=== PATIENT | male | born 1950 | race American Indian/Alaskan Native ===

== ENCOUNTER 2016-09-04 08:22 | Emergency (ER) | payer MEDICARE ==
[2016-09-04 08:27] VITALS: O2SAT 98
--- NOTE | 2016-09-04 08:46 | C.PDOC ---
History Of Present Illness 66 y/o male presents to the ED for testicular swelling x 3 years, which he states is a little bit worse lately. He notes that he fell in the and injured his back so also has some chronic back pain. Patient reports that his PMD recently so he does not have a doctor right now. He states that [place] [facility] [place] worked up not "no one would operate" on him. Patient reports history of hypertension and diabetes. Denies any fever, urinary symptoms, penile discharge, abdominal pain, or other complaints. Time Seen by Provider: 09/04/16 08:30 Chief Complaint (Nursing): Male Genitourinary History Per: Patient History/Exam Limitations: no limitations Onset/Duration Of Symptoms: Days (3 years), Gradual, Persistent, Worse Since ( "lately") Current Symptoms Are (Timing): Still Present Alleviating Factors: None Recent travel outside of the [place]: No Past Medical History Reviewed: Historical Data, Nursing Documentation, Vital Signs Vital Signs: Last Vital Signs Temp 97.8 F 09/04/16 11:12 Pulse 82 09/04/16 11:12 Resp 20 09/04/16 11:12 BP 144/82 09/04/16 11:12 Pulse Ox 98 09/04/16 11:12 - Medical History PMH: Back Problems, Diabetes, HTN Surgical History: No Surg Hx Family History: States: No Known Family Hx - Social History Hx Tobacco Use: No Hx Alcohol Use: No Hx Substance Use: No Review Of Systems Except As Marked, All Systems Reviewed And Found Negative. Constitutional: Negative for: Fever Gastrointestinal: Negative for: Abdominal Pain Genitourinary: Positive for: Other (testicular swelling). Negative for: Dysuria , Hematuria, Penile Discharge Musculoskeletal: Positive for: Back Pain (chronic) Physical Exam - Physical Exam Appears: Non-toxic, No Acute Distress Skin: Normal Color, Warm, Dry Head: Atraumatic, Normacephalic Neck: Normal ROM Chest: Symmetrical Cardiovascular: Rhythm Regular Respiratory: Normal Breath Sounds, No Rales, No Rhonchi, No Wheezing Gastrointestinal/Abdominal: Normal Exam, Soft, No Tenderness Back: Normal Inspection, No CVA Tenderness, No Vertebral Tenderness Male Genital: Testicular Tenderness (right), Testicular Swelling (right), Other Extremity: Normal ROM Neurological/Psych: Oriented x3, Normal Speech, Normal Cognition ED Course And Treatment - Laboratory Results Result Diagrams: 09/04/16 09:09 09/04/16 09:09 Lab Interpretation: Normal O2 Sat by Pulse Oximetry: 98 (ra) Pulse Ox Interpretation: Normal - CT Scan/US Ultrasound Other Rad Studies (CT/US): Read By Radiologist, Radiology Report Reviewed CT/US Interpretation: Accession No. : [id number]. Patient Name / ID : MANNIE GUARDADO / [id number]. Exam Date : 09/04/2016 09:35:21 ( Approved ). Study Comment : Sex / Age : M / 66Y. Creator : Nichol Soriano MD. Dictator : Nichol Soriano MD. Mail Agent : Slab Tripper : Nichol Soriano MD. Approver2 : Report Date : 09/04/2016 10:15:59. My Comment : . HISTORY: swelling. TECHNIQUE: Realtime sonography through the scrotum with color and doppler flow. COMPARISON: None Available. FINDINGS: RIGHT TESTICLE: Measures 5.8 x 2.6 x 3.1 cm. Homogeneous echotexture. Blood flow is demonstrated. RIGHT EPIDIDYMIS: Appears approximately 0.9 x 0.6 x 0.8 cm. LEFT TESTICLE: Measures 4.4 x 2.2 x 3.0 cm. Homogeneous echotexture. Blood flow is demonstrated. LEFT EPIDIDYMIS: Measures approximately 1.1 x 0.9 x 0.9 cm. HYDROCELE: Moderate to large right-sided hydrocele. VARICOCELE: None. OTHER FINDINGS: None. IMPRESSION: Moderate to large right-sided hydrocele. Progress Note: Testicular Ultrasound, Blood Work, and Urinalysis were ordered. On re-evaluation abdomen soft. Patient given copy of US and labs and referred to clinic and urology Reassessment Condition: Improved Disposition Counseled Patient/Family Regarding: Studies Performed, Diagnosis, Need For Followup, Rx Given - Disposition Referrals: Curt,Vito, MD [Staff Provider] - [facility] [Outside] [facility] [Outside] Disposition: HOME/ ROUTINE Disposition Time: 11:00 Condition: IMPROVED Additional Instructions: Follow up with clinic and urology for further evaluation Prescriptions: Naproxen [Naprosyn] 1 tab PO BID PRN #25 tab PRN Reason: Pain Instructions: Hydrocele (ED), Testicle Pain (ED) Print Language: GREEK - POA Present On Arrival: None - Clinical Impression Clinical Impression: Hydrocele - PA / POLITICAL SCIENTIST / Resident Statement MD/DO has reviewed & agrees with the documentation as recorded. - Scribe Statement The provider has reviewed the documentation as recorded by the Scribe (Stefanie Ryan) All medical record entries made by the Scribe were at my direction and personally dictated by me. I have reviewed the chart and agree that the record accurately reflects my personal performance of the history, physical exam, medical decision making, and the department course for this patient. I have also personally directed, reviewed, and agree with the discharge instructions and disposition.
[2016-09-04 09:13] LABS: BASO # 0.1 K/uL (0.0-0.2); BASO % 1.1 % (0.0-2.0); EOS # 0.1 K/uL (0.0-0.7); EOS % 1.7 % (0.0-4.0); HEMATOCRIT 43.7 % (35.0-51.0); LYMPH # 2.8 K/uL (1.0-4.3); LYMPH % 45.6 % (20.0-40.0); MEAN CORPUSCULAR HEMOGLOBIN 28.7 pg (27.0-31.0); MEAN CORPUSCULAR HGB CONC 34.1 g/dL (33.0-37.0); MEAN PLATELET VOLUME 7.9 fL (7.2-11.7); MONO # 0.4 K/uL (0.0-0.8); MONO % 6.5 % (0.0-10.0); NRBC % 0.1 % (0.0-2.0); RED CELL DISTRIBUTION WIDTH 13.2 % (11.5-14.5)
[2016-09-04 09:16] LABS: RBC URINE 1 /hpf (0-3); URINE BILIRUBIN NEGATIVE (NEGATIVE); URINE BLOOD NEGATIVE (NEGATIVE); URINE COLOR Yellow (YELLOW); URINE GLUCOSE (UA) NORMAL (Normal); URINE KETONE NEGATIVE (NEGATIVE); URINE LEUKOCYTE ESTERASE NEG Leu/uL (Negative); URINE PROTEIN NEGATIVE (NEGATIVE); URINE UROBILINOGEN NORMAL mg/dL (0.2-1.0); WBC URINE 1 /hpf (0-5)
[2016-09-04 09:22] LABS: CHLORIDE 98 mmol/L (98-107); POTASSIUM 4.6 mmol/L (3.6-5.2); SODIUM 137 mmol/L (132-148)
[2016-09-04 09:24] LABS: ALB/GLOB RATIO 1.4 (1.0-2.1); ALKALINE PHOSPHATASE 63 U/L (38-126); AST/SGOT 24 U/L (17-59); BILIRUBIN,TOTAL 0.5 mg/dL (0.2-1.3); CARBON DIOXIDE 26 mmol/L (22-30); GFR AFRICAN-AMERICAN > 60; TOTAL PROTEIN 7.2 g/dL (6.3-8.3)
[2016-09-04 09:25] LABS: ALT/SGPT 30 U/L (21-72); BLOOD UREA NITROGEN 12 mg/dL (9-20); CALCIUM 8.9 mg/dl (8.6-10.4); GLUCOSE,RANDOM 192 mg/dL (75-110)
--- NOTE | 2016-09-04 10:17 | US ---
HISTORY: swelling TECHNIQUE: Realtime sonography through the scrotum with color and doppler flow. COMPARISON: None Available. FINDINGS: RIGHT TESTICLE: Measures 5.8 x 2.6 x 3.1 cm. Homogeneous echotexture. Blood flow is demonstrated. RIGHT EPIDIDYMIS: Appears approximately 0.9 x 0.6 x 0.8 cm. LEFT TESTICLE: Measures 4.4 x 2.2 x 3.0 cm. Homogeneous echotexture. Blood flow is demonstrated. LEFT EPIDIDYMIS: Measures approximately 1.1 x 0.9 x 0.9 cm. HYDROCELE: Moderate to large right-sided hydrocele. VARICOCELE: None. OTHER FINDINGS: None. IMPRESSION: Moderate to large right-sided hydrocele.
[2016-09-04 11:12] VITALS: BP 144/82; PULSE 82; RESP 20; TEMP 97.8
== END 2016-09-04 11:26 | disposition home or self-care (01) ==
LOC: C.ER 08:22
DX: N43.3 Hydrocele, unspecified (principal)

== ENCOUNTER 2017-08-15 08:29 | Day surgery (SDC) | payer MEDICARE ==
[2017-07-23 10:27] VITALS: BMI 31.4
[2017-08-15] MEDS ORDERED: ceFAZolin IV 1 gm in Dextrose 1 GM/50 ML BAG IVPB ONE (11:15)
[2017-08-15] MEDS ORDERED: Bupivacaine HCl 0.5% PF (10 ml) Inj ONE (11:15)
[2017-08-15] MEDS ORDERED: Lidocaine Hydrochloride 10 ML INJ ONE (11:15)
[2017-08-15] MEDS ORDERED: Propofol 10 mg/ml Inj (20 ML) ONE (11:18)
[2017-08-15] MEDS ORDERED: Midazolam 2 MG/2 ML VIAL ONE (11:18)
[2017-08-15] MEDS ORDERED: Bacitracin Ointment 30 GM TUBE ONE (11:56)
[2017-08-15] MEDS ORDERED: Phenylephrine 10 mg/ml Inj ONE (12:37)
[2017-08-15] MEDS ORDERED: HYDROmorphone 0.5 mg/0.5 ml ISec IVP PRN (13:16)
[2017-08-15] MEDS ORDERED: Lactated Ringer's 1,000 ML IV SCH (13:30)
[2017-08-15 14:09] VITALS: BP 130/82
[2017-08-15 14:32] VITALS: PULSE 80; RESP 18; TEMP 97; O2SAT 100
--- NOTE | 2017-08-16 00:24 | OP ---
PROCEDURE DATE: 08/15/2017 PREOPERATIVE DIAGNOSIS: Right hydrocele. POSTOPERATIVE DIAGNOSIS: Right hydrocele. PROCEDURE: Right hydrocelectomy. SURGEON: Vito Elias M.D. TYPE OF ANESTHESIA: Local anesthesia plus laryngeal mask anesthesia with DESCRIPTION OF PROCEDURE: The patient was placed on the operating room in the supine position, prepped and draped in usual sterile fashion with Betadine solution. Under laryngeal mask anesthesia, a mid right scrotal transverse skin incision was made. This was deepened down to the subcutaneous tissue and the hydrocele sac was then mobilized within the scrotal sac and longitudinal incision in the hydrocele sac revealed grey fluid return. Using a bottle neck technique, the remaining tunica vaginalis was closed over itself behind the testicle, which appeared to be relatively normal using 2-0 Vicryl interrupted sutures. A Culloden drain was brought out through the most dependent portion of the scrotal skin in the right scrotal sac. This was a 0.25-inch Natacha drain. It was sutured to the skin using 2-0 Vicryl interrupted suture and placed in the scrotal sac. Next, the subcutaneous tissue was closed using 2-0 Vicryl and 3-0 Chromic interrupted sutures. The skin was also closed using 3-0 Chromic interrupted sutures. Bacitracin ointment was applied to the scrotal wound and sterile gauze dressing and fluff dressings were placed over the scrotal wound, which was held in place using an extra large scrotal support. The patient tolerated the procedure well with about 15 mL of blood loss and was brought to the recovery area in satisfactory condition. The patient did take some aspirin prior to the procedure which was on as one of his routine medications. The patient will follow up either Saturday or Saturday to remove the Culloden drain. The patient will be discharged home on Ceftin 500 mg b.i.d. for 5 days and then Percocet 5/325 mg p.o. every 6 hours on a p.r.n. basis. The patient is advised not to take any aspirin till the Natacha drain is removed. Vito Elias MD cc: [facility] # [id number]
== END 2017-08-15 14:55 | disposition home or self-care (01) ==
LOC: C.SDS 08:29
PROVIDERS: ATTEND Urology
DX: N43.3 Hydrocele, unspecified (principal)
CPT/HCPCS: 55500; 82948; J0690; J2250; J2370; J2704; J3010

== ENCOUNTER 2017-08-16 19:46 | Observation (INO) | payer MEDICARE ==
[2017-08-16 20:03] VITALS: BMI 27.8
[2017-08-16 21:09] LABS: BASO % 0.2 % (0.0-2.0); EOS % 0.5 % (0.0-4.0); HEMOGLOBIN 13.6 g/dL (12.0-18.0); LYMPH # 1.2 K/uL (1.0-4.3); LYMPH % 13.3 % (20.0-40.0); MEAN CELL VOLUME 86.1 fL (80.0-94.0); MEAN CORPUSCULAR HEMOGLOBIN 29.5 pg (27.0-31.0); MEAN CORPUSCULAR HGB CONC 34.3 g/dL (33.0-37.0); MEAN PLATELET VOLUME 8.2 fL (7.2-11.7); MONO # 0.6 K/uL (0.0-0.8); NEUT # 7.3 K/uL (1.8-7.0); NRBC % 0.1 % (0.0-2.0); RBC 4.62 Mil/uL (4.40-5.90); RED CELL DISTRIBUTION WIDTH 13.5 % (11.5-14.5); WHITE BLOOD COUNT 9.3 K/uL (4.8-10.8)
[2017-08-16 21:17] LABS: PROTHROMBIN TIME 11.3 SECONDS (9.7-12.2)
--- NOTE | 2017-08-16 21:18 | C.PDOC ---
History Of Present Illness 67 year old male, who is s/p hydrocele repair yesterday, presents to the ED with complaint of lightheadedness and dizziness which began at around 1600 today. Patient is also complaining of right testicular pain. Patient is a poor historian and cannot characterize further history. Time Seen by Provider: 08/16/17 20:48 Chief Complaint (Nursing): Dizziness/Lightheaded History Per: Patient History/Exam Limitations: no limitations Onset/Duration Of Symptoms: Hrs Current Symptoms Are (Timing): Still Present Associated Symptoms Preceding Syncopal Episode: No Predromal Symptoms (Sudden Onset) Additional History Per: Patient Past Medical History Reviewed: Historical Data, Nursing Documentation, Vital Signs Vital Signs: Last Vital Signs Temp 98.0 F 08/18/17 07:20 Pulse 90 08/18/17 07:45 Resp 18 08/18/17 07:20 BP 145/74 08/18/17 07:20 Pulse Ox 96 08/19/17 11:41 - Medical History PMH: Back Problems, Diabetes, HTN Denies: Chronic Kidney Disease Surgical History: No Surg Hx Family History: States: Unknown Family Hx - Social History Hx Tobacco Use: No Hx Alcohol Use: No Hx Substance Use: No - Immunization History Hx Tetanus Toxoid Vaccination: No Hx Influenza Vaccination: No Hx Pneumococcal Vaccination: No Review Of Systems Neurological: Positive for: Dizziness, Other (lightheadedness) Physical Exam - Physical Exam Appears: Non-toxic, No Acute Distress Skin: Normal Color, Warm, Dry, Other (milton drain sutured to skin ) Head: Atraumatic, Normacephalic Oral Mucosa: Moist Neck: Supple Chest: Symmetrical, No Deformity, No Tenderness Cardiovascular: Rhythm Regular, No Murmur Respiratory: Normal Breath Sounds, No Rales, No Rhonchi, No Wheezing Gastrointestinal/Abdominal: Soft, No Tenderness, No Guarding, No Rebound Male Genital: Testicular Tenderness (right), Other (enlarged right testicle ) Extremity: Normal ROM, Capillary Refill (less than 2 seconds ) Neurological/Psych: Oriented x3, Normal Speech, Normal Cognition ED Course And Treatment - Laboratory Results Result Diagrams: 08/16/17 21:02 08/16/17 21:02 ECG: Interpreted By Me, Viewed By Me ECG Rhythm: Sinus Tachycardia Interpretation Of ECG: Sinus Tachycardia at rate 102bpm. No ST/T wave changes. Rate From EC O2 Sat by Pulse Oximetry: 96 Medical Decision Making Medical Decision Making: Progress: Bloodwork, CXR, EKG, Testicular US ordered and reviewed. Disposition - Disposition Disposition: HOSPITALIZED Disposition Time: 11:00 Condition: STABLE - Clinical Impression Clinical Impression: Dizziness, Near syncope, Post-op pain - Scribe Statement The provider has reviewed the documentation as recorded by the Scribe (Gisela Koehler) Provider Attestation: All medical record entries made by the Scribe were at my direction and personally dictated by me. I have reviewed the chart and agree that the record accurately reflects my personal performance of the history, physical exam, medical decision making, and the department course for this patient. I have also personally directed, reviewed, and agree with the discharge instructions and disposition. Decision To Admit - Pt Status Changed To: Hospital Disposition Of: Observation - . Bed Request Type: Telemetry Admitting Physician: Martha Palma Patient Diagnosis: Dizziness, Near syncope, Post-op pain
[2017-08-16 21:20] LABS: ALB/GLOB RATIO 1.1 (1.0-2.1); ALT/SGPT 37 U/L (21-72); AST/SGOT 27 U/L (17-59); BLOOD UREA NITROGEN 11 mg/dL (9-20); CALCIUM 8.8 mg/dl (8.6-10.4); GFR AFRICAN-AMERICAN > 60; GFR NON-AFRICAN AMERICAN > 60
[2017-08-16] MEDS ORDERED: Oxycodone/Acetaminophen 5/325 mg Tab PO PRN (22:31)
[2017-08-16] MEDS: Dextrose 5%/0.9% NS 1,000 ML IV SCH (22:40)
[2017-08-16] MEDS ORDERED: Dextrose 5%/0.9% NS 1,000 ML IV ONE (22:46)
--- NOTE | 2017-08-16 23:22 | US ---
EXAM: US Scrotum EXAM DATE/TIME: 08/16/2017 8:58 PM CLINICAL HISTORY: 67 years old, male; Pain; Scrotum pain; Prior surgery; Surgery date: Post-operative (0-2 days); Surgery type: Scrotum surgery; Patient HX: See cine please; Additional info: Right testicular pain S/P surgery TECHNIQUE: Real-time ultrasound of the scrotum with color Doppler and image documentation. COMPARISON: No relevant prior studies available. FINDINGS: The right testicle measures 4 x 3 x 3 cm and the left testicle measures 4 x 3 x 3 cm. The testicles are homogeneous bilaterally. Vascular waveforms are demonstrated to the testicle bilaterally (no torsion). The flow appears symmetric on side by side images. The right epididymis measures 1.5 x 1 x 1.6 cm. The left epididymis measures 2.2 x 0.9 x 1.5 cm. The visualized epidiymis are normal bilaterally although there is slightly suboptimal visualization of the right epididymal head. There are bilateral hydroceles greater on the right. There is a septation coursing through the left hydrocele. There is bilateral scrotal wall thickening greater on the right (1.2 cm on the right and 0.5 cm on the left). IMPRESSION: Bilateral scrotal wall thickening and bilateral hydroceles, both greater on the right. These findings could be postoperative given a history of recent surgery. Superimposed developing infectious/inflammatory process would be possible, however there is no asymmetry in the testicular size or testicular vascularity to suggest orchitis at this time.
--- NOTE | 2017-08-16 23:38 | CT ---
EXAM: CT Head Without Intravenous Contrast EXAM DATE/TIME: 08/16/2017 10:19 PM CLINICAL HISTORY: 67 years old, male; Signs and symptoms; Dizziness TECHNIQUE: Axial computed tomography images of the head/brain without intravenous contrast. All CT scans at this facility use one or more dose reduction techniques, viz.: automated exposure control; ma/kV adjustment per patient size (including targeted exams where dose is matched to indication; i.e. head); or iterative reconstruction technique. COMPARISON: No relevant prior studies available. FINDINGS: There is atrophy. There is chronic small vessel ischemic disease. There is no hemorrhage or edema. No significant fluid in the sinuses. The osseous structures are normal. IMPRESSION: No acute findings.
--- NOTE | 2017-08-17 08:54 | RAD ---
PROCEDURE: CHEST RADIOGRAPH, 1 VIEW HISTORY: Chest pain COMPARISON: None available. FINDINGS: LUNGS: The lungs are well inflated and clear. PLEURA: No pneumothorax or pleural fluid seen. CARDIOVASCULAR: Normal. OSSEOUS STRUCTURES: No significant abnormalities. VISUALIZED UPPER ABDOMEN: Normal. OTHER FINDINGS: None. IMPRESSION: No active pulmonary disease.
[2017-08-17] MEDS: Dextrose 5%/0.9% NS 1,000 ML IV SCH (11:00)
[2017-08-18] MEDS: Dextrose 5%/0.9% NS 1,000 ML IV SCH ×2 (00:05→12:34)
--- NOTE | 2017-08-18 00:25 | CON ---
DATE: 08/17/2017 TIME OF CONSULTATION: 1:40 p.m. BRIEF HISTORY: The patient is a 67-year-old male, status post a right hydrocelectomy done at [facility] on 08/15/2017 who presents to [facility] emergency room postop with a complaint of dizziness. Upon examination in the emergency room, the ER physician noted that the Natacha drain was pulled out and just attached to the skin. There was minimal bleeding from the scrotal wound and [id number] serosanguineous fluid on the scrotal dressing. The patient was admitted for workup of dizziness. PHYSICAL EXAMINATION VITAL SIGNS: On admission showed his temperature today is 98, his blood pressure is 146/84, and his respiratory rate was 20, O2 saturation on room air was 98%. His scrotal wound examination showed the scrotal wound to be intact. No dressing on the wound and just the scrotal support holding the scrotum elevated. There was minimal serosanguineous drainage on the scrotal support at this hour. The Haynes drain was removed from the skin and a sterile gauze dressing was applied to the scrotal wound and a new scrotal support placed to hold the scrotal dressing and maintain the scrotum elevated. There was minimal swelling of the right scrotum. The patient was relatively comfortable and not requiring any pain medication at this time. LABORATORY DATA: His laboratory evaluation on 06/18/2017 showed CBC with a WBC count of 9.3, hemoglobin of 13.6, hematocrit 39.8, with a platelet count of 248,000. PT and PTT showed a PT of 11.3, INR of 1.0, and PTT of 30. His chem profile showed a sodium of 139, potassium 4.0, chloride 99, CO2 of 25, BUN and creatinine of 11 and 0.9 respectively with GFR greater than 60. Random glucose was 169. AST was 27, ALT was 37. Alk phos was 59. Troponin level was less than 0.0120. IMPRESSION: This patient is status post right hydrocelectomy, but comlained of dizziness post op, Patient admitted for work up of dizziness. Plan for this patient is just to manage the patient medically at this time. The patient to see me in office followup in about 2 weeks. Vito Elias MD [facility] # [id number] BRAD
[2017-08-18 07:52] VITALS: BP 145/74; RESP 18; TEMP 98
[2017-08-18 08:45] VITALS: PULSE 90
[2017-08-19 11:41] VITALS: O2SAT 96
--- NOTE | 2017-08-19 14:13 | HP ---
HISTORY OF PRESENT ILLNESS: This is a 67-year-old male with chief complaint of near syncope and dizziness. The patient had surgery by Urologist and the patient feel weak and tired. PHYSICAL EXAMINATION: GENERAL: The patient is awake, alert, and oriented x3. VITAL SIGNS: Temperature 98, pulse 90. HEENT: Within normal limits. NECK: Supple. HEART: Regular. CHEST: Symmetrical. ABDOMEN: Soft. EXTREMITIES: No edema. IMPRESSION: Status post ____ dizziness. Patient in bed rest, neuro check, urology evaluation. Martha Palma MD
--- NOTE | 2017-08-20 06:45 | DS ---
HISTORY OF PRESENT ILLNESS: This is a 67-year-old male admitted to the hospital with chief complaint of dizziness and weakness. The patient underwent surgery. Patient has dizziness and weakness, patient came to the hospital, advised admission. The patient to get bedrest, supportive care, continue treatment. The patient improved, Discharged, follow up with Dr. Elias. Martha Palma MD
--- NOTE | 2017-08-20 12:53 | CARD ---
APPROVED REPORT EKG Measurement Heart [id number] <Conclusion> Sinus tachycardia with premature atrial complexes Possible Left atrial enlargement Borderline ECG
== END 2017-08-18 13:56 | disposition home or self-care (01) ==
LOC: C.ER 19:46 → C.5S 23:38
PROVIDERS: ADMIT Internal Medicine Pulmonary Disease; ATTEND Internal Medicine Pulmonary Disease
DX: R42 Dizziness and giddiness (principal); R53.1 Weakness; I10 Essential (primary) hypertension; E11.9 Type 2 diabetes mellitus without complications; G89.18 Other acute postprocedural pain; R55 Syncope and collapse
CPT/HCPCS: 70450; 71045; 76870; 80053; 82948; 84484; 85025; 85610; 85730; 99285; G0378; J7042

== ENCOUNTER 2017-10-09 00:10 | Emergency (ER) | payer MEDICARE ==
[2017-10-09 00:10] VITALS: BMI 27.8
[2017-10-09 00:22] VITALS: RESP 18
--- NOTE | 2017-10-09 00:35 | C.PDOC ---
History Of Present Illness 67 year old male presents to the ED c/o difficulty urinating. Patient reports he usually does not urinate much but today he noticed he was not able to urinate at all. Patient denies fever, chills, nausea, vomit, diarrhea, back pain. Chief Complaint (Nursing): Male Genitourinary History Per: Patient History/Exam Limitations: no limitations Onset/Duration Of Symptoms: Days Current Symptoms Are (Timing): Still Present Quality Of Discomfort: "Pain" Associated Symptoms: Urinary Symptoms Recent travel outside of the [place]: No Additional History Per: Patient Past Medical History Reviewed: Historical Data, Nursing Documentation, Vital Signs Vital Signs: Last Vital Signs Temp 98.1 F 10/09/17 00:18 Pulse 110 H 10/09/17 00:18 Resp 18 10/09/17 00:18 BP 147/83 10/09/17 00:18 Pulse Ox 98 10/09/17 01:14 - Medical History PMH: Back Problems, Diabetes, HTN Denies: Chronic Kidney Disease Surgical History: No Surg Hx Family History: States: Unknown Family Hx - Social History Hx Tobacco Use: No Hx Alcohol Use: No Hx Substance Use: No - Immunization History Hx Tetanus Toxoid Vaccination: No Hx Influenza Vaccination: No Hx Pneumococcal Vaccination: No Review Of Systems Constitutional: Negative for: Fever, Chills Cardiovascular: Negative for: Chest Pain Respiratory: Negative for: Shortness of Breath Gastrointestinal: Negative for: Abdominal Pain Skin: Negative for: Rash Neurological: Negative for: Weakness, Numbness Physical Exam - Physical Exam Appears: Non-toxic, No Acute Distress Skin: Normal Color, Warm, Dry Head: Atraumatic, Normacephalic Eye(s): bilateral: Normal Inspection Nose: No Discharge Oral Mucosa: Moist Neck: Normal ROM, Supple Chest: Symmetrical Cardiovascular: Rhythm Regular, No Murmur Respiratory: Normal Breath Sounds, No Rales, No Rhonchi, No Wheezing Gastrointestinal/Abdominal: No Soft (firm ), No Tenderness, Distention, No Guarding, No Rebound Back: No CVA Tenderness Extremity: Normal ROM, No Tenderness, No Swelling Neurological/Psych: Oriented x3, Normal Speech, Normal Cognition Gait: Steady ED Course And Treatment O2 Sat by Pulse Oximetry: 98 (ON RA) Pulse Ox Interpretation: Normal Medical Decision Making Medical Decision Making: Impression: trouble urinating Plan: * Flomax 0.4 mg PO * Urine culture * Dukes * UA Disposition Counseled Patient/Family Regarding: Diagnosis - Disposition Referrals: Martha Palma MD [Primary Care Provider] - Disposition: HOME/ ROUTINE Disposition Time: 04:00 Condition: STABLE Prescriptions: Ciprofloxacin [Cipro] 1 tab PO BID #14 tab Tamsulosin HCl [Flomax] 0.4 mg PO DAILY #10 cap.er.24h Instructions: Urinary Retention (DC), Dukes Catheter, Male, How to Care for Your Dukes Catheter, Male Forms: [employer] (Japanese) - POA Present On Arrival: None - Clinical Impression Clinical Impression: Urinary retention - Scribe Statement The provider has reviewed the documentation as recorded by the Scribe Reece Gonzales All medical record entries made by the Scribe were at my direction and personally dictated by me. I have reviewed the chart and agree that the record accurately reflects my personal performance of the history, physical exam, medical decision making, and the department course for this patient. I have also personally directed, reviewed, and agree with the discharge instructions and disposition.
[2017-10-09] MEDS ORDERED: Lidocaine 2% Jelly (Uro-Jet) ONE (01:04)
[2017-10-09] MEDS ORDERED: Morphine 4 MG/ML VIAL ONE (01:53)
[2017-10-09 03:45] LABS: SQUAMOUS EPITHIAL < 1 /hpf (0-5); URINE BACTERIA RARE (<OCC); URINE BILIRUBIN NEGATIVE (NEGATIVE); URINE BLOOD 2+ (NEGATIVE); URINE CLARITY Clear (Clear); URINE COLOR Yellow (YELLOW); URINE GLUCOSE (UA) 1+ mg/dL (Normal); URINE LEUKOCYTE ESTERASE NEG Leu/uL (Negative); URINE PROTEIN NEGATIVE (NEGATIVE); URINE UROBILINOGEN NORMAL mg/dL (0.2-1.0)
[2017-10-09 04:44] VITALS: BP 140/80; PULSE 89; TEMP 98; O2SAT 100
== END 2017-10-09 04:45 | disposition home or self-care (01) ==
LOC: C.ER 00:10 → SUPCPDRO 00:10 → C.ER 04:45
DX: R33.9 Retention of urine, unspecified (principal); I10 Essential (primary) hypertension; E11.9 Type 2 diabetes mellitus without complications
CPT/HCPCS: 81001; 82948; 87086; 96374; 99285; J2270

== ENCOUNTER 2017-10-11 09:34 | Emergency (ER) | payer MEDICARE ==
[2017-10-11 09:35] VITALS: BMI 27.8
[2017-10-11 09:41] VITALS: BP 156/91; PULSE 92; RESP 16; TEMP 97.9; O2SAT 100
[2017-10-11 10:35] LABS: SQUAMOUS EPITHIAL 1 /hpf (0-5); URINE BACTERIA RARE (<OCC); URINE BILIRUBIN NEGATIVE (NEGATIVE); URINE BLOOD 3+ (NEGATIVE); URINE CLARITY Hazy (Clear); URINE COLOR Yellow (YELLOW); URINE GLUCOSE (UA) 3+ mg/dL (Normal); URINE HYALINE CAST 0-2 /lpf (0-2); URINE LEUKOCYTE ESTERASE 1+ Leu/uL (Negative); URINE PROTEIN 2+ mg/dL (NEGATIVE)
--- NOTE | 2017-10-11 10:48 | C.PDOC ---
History Of Present Illness 67 year old male presents to the ED requesting to have his Jasmine removed. Patient was seen in the ED on Saturday night for urinary retention had a jasmine placed and was given flomax and cipro. Patient goes to Urologist Dr. Elias , as per patient he was instructed by ED doctor to come to the ED to have his jasmine removed. Patient denies any complaints at this time. Chief Complaint (Nursing): Male Genitourinary History Per: Patient History/Exam Limitations: no limitations Onset/Duration Of Symptoms: Days Current Symptoms Are (Timing): Still Present Quality Of Discomfort: "Pain" Associated Symptoms: Urinary Symptoms Alleviating Factors: None Recent travel outside of the [place]: No Additional History Per: Patient Past Medical History Reviewed: Historical Data, Nursing Documentation, Vital Signs Vital Signs: Last Vital Signs Temp 97.9 F 10/11/17 09:37 Pulse 92 H 10/11/17 09:37 Resp 16 10/11/17 09:37 BP 156/91 H 10/11/17 09:37 Pulse Ox 100 10/11/17 12:52 - Medical History PMH: Back Problems, Diabetes, HTN Denies: Chronic Kidney Disease Surgical History: No Surg Hx Family History: States: Unknown Family Hx - Social History Hx Tobacco Use: No Hx Alcohol Use: No Hx Substance Use: No - Immunization History Hx Tetanus Toxoid Vaccination: No Hx Influenza Vaccination: No Hx Pneumococcal Vaccination: No Review Of Systems Constitutional: Negative for: Fever, Chills Cardiovascular: Negative for: Chest Pain Respiratory: Negative for: Shortness of Breath Gastrointestinal: Negative for: Vomiting, Abdominal Pain Genitourinary: Positive for: Other (Jasmine placed) Skin: Negative for: Rash Neurological: Negative for: Weakness, Numbness Physical Exam - Physical Exam Appears: Non-toxic, No Acute Distress Skin: Normal Color, Warm, Dry Head: Atraumatic, Normacephalic Eye(s): bilateral: Normal Inspection Nose: No Discharge Oral Mucosa: Moist Neck: Normal ROM, Supple Chest: Symmetrical Cardiovascular: Rhythm Regular, No Murmur Respiratory: Normal Breath Sounds, No Rales, No Rhonchi, No Wheezing Gastrointestinal/Abdominal: Soft, No Tenderness, No Guarding, No Rebound Male Genital: Other (Jasmine in place, no leakage. Urine seen is dark yellow) Extremity: Normal ROM, No Tenderness, No Swelling Neurological/Psych: Oriented x3, Normal Speech Gait: Steady ED Course And Treatment O2 Sat by Pulse Oximetry: 100 (ON RA) Pulse Ox Interpretation: Normal Progress Note: Plan: - UA. - Urine culture. Patient was explained that he needs to follow up with his urologist and have his jasmine removed at his office to make sure there is no retention. Patient was D/C and was told follow up with his Urologist. Disposition - Disposition Referrals: Vito Elias MD [Staff Provider] - Disposition: HOME/ ROUTINE Disposition Time: 10:47 Condition: STABLE Additional Instructions: Follow up with your Urologist within 1-2 days. Return to ED if feel worse. Instructions: How to Care for Your Jasmine Catheter, Male, Jasmine Catheter, Male Forms: [employer] ([place] Citizen) - Clinical Impression Clinical Impression: Jasmine catheter in place - PA / CONCHE OPERATOR / Resident Statement MD/DO has reviewed & agrees with the documentation as recorded. - Scribe Statement The provider has reviewed the documentation as recorded by the Scribe Reece Gonzales All medical record entries made by the Scribe were at my direction and personally dictated by me. I have reviewed the chart and agree that the record accurately reflects my personal performance of the history, physical exam, medical decision making, and the department course for this patient. I have also personally directed, reviewed, and agree with the discharge instructions and disposition.
== END 2017-10-11 11:06 | disposition home or self-care (01) ==
LOC: C.ER 09:34
DX: Z46.6 Encounter for fitting and adjustment of urinary device (principal); I10 Essential (primary) hypertension; E11.9 Type 2 diabetes mellitus without complications

== ENCOUNTER 2017-10-13 13:13 | Emergency (ER) | payer MEDICARE ==
[2017-10-13 13:14] VITALS: BMI 27.8
[2017-10-13] MEDS ORDERED: Morphine 4 MG/ML VIAL IV ONE (13:32)
--- NOTE | 2017-10-13 13:33 | C.PDOC ---
History Of Present Illness 67 y/o male with pmhx significant for BPH. Patient had a jasmine catheter placed 5 days ago after presenting for urinary retention, two days ago he returned and asked for it to be removed as it was uncomfortable. Apparently his wishes were not followed and he was discharged. Since last night he has had new development of right sided inguinal swelling without vomiting, fever, or dysuria. Chief Complaint (Nursing): Male Genitourinary History Per: Patient History/Exam Limitations: no limitations Onset/Duration Of Symptoms: Days (1) Current Symptoms Are (Timing): Still Present Severity: Moderate Quality Of Discomfort: "Pain" Associated Symptoms: denies: Fever, Vomiting, Urinary Symptoms Recent travel outside of the [place]: No Additional History Per: Patient Past Medical History Vital Signs: Last Vital Signs Temp 97.9 F 10/13/17 16:30 Pulse 96 H 10/13/17 16:30 Resp 17 10/13/17 16:30 BP 143/81 10/13/17 16:30 Pulse Ox 98 10/13/17 16:30 - Medical History PMH: Back Problems, Benign Prostatic Hyperplasia, Diabetes, HTN Denies: Chronic Kidney Disease Other Surgeries: operation of unknown significance to evacuate a testicular lesion in July 2017. Family History: States: Unknown Family Hx - Social History Hx Tobacco Use: No Hx Alcohol Use: No Hx Substance Use: No - Immunization History Hx Tetanus Toxoid Vaccination: No Hx Influenza Vaccination: No Hx Pneumococcal Vaccination: No Review Of Systems Except As Marked, All Systems Reviewed And Found Negative. Gastrointestinal: Positive for: Other (inguinal swelling) Physical Exam - Physical Exam Appears: Well, No Acute Distress Skin: Normal Color, Warm, Dry Eye(s): bilateral: Normal Inspection, PERRL, EOMI Nose: Normal Throat: Normal Neck: Normal Cardiovascular: Rhythm Regular Respiratory: Normal Breath Sounds Gastrointestinal/Abdominal: No Normal Exam, Bowel Sounds (normal), Soft, Hernia (incarcerated right inguinal hernia, abdomen is otherwise normal.) Back: Normal Inspection Male Genital: No Testicular Swelling, Inguinal Tenderness, Inguinal Swelling ( right sided), No Scrotal Swelling, Other (jasmine catheter in place) Extremity: Normal ROM Pulses: Left Dorsalis Pedis: Normal, Right Dorsalis Pedis: Normal Neurological/Psych: Oriented x3, Normal Speech ED Course And Treatment - Laboratory Results Result Diagrams: 10/13/17 13:50 10/13/17 13:50 ECG: Interpreted By Me, Viewed By Me ECG Rhythm: Sinus Tachycardia (105) Interpretation Of ECG: Sinus Tachycardia rate of 105, normal QT, normal QRS O2 Sat by Pulse Oximetry: 95 (RA) Pulse Ox Interpretation: Normal Medical Decision Making Medical Decision Making: Impression: Incarcerated Inguinal Hernia Plan: - EKG - Morphine 4 mg - Labs Numerous attempts to reduce the hernia were unsuccessful. Patient will be consulted by general surgery for admission and surgical reduction. 14:30: Labs reviewed and are significant for elevated blood glucose at 522, he will be given 10 units of insulin. 16:21: CT shows large hydrocele. Call placed to patient's urologist. 16:25: Spoke with Urologist who would like to see the patient in the office, and requested that the jasmine remain in place. He is aware of the hydrocele and does not feel that this is an urgent concern at this time. Scribe Attestation: Documented by Consuelo Bonilla acting as a scribe for Jody Quinones MD. Scribe Attestation: All medical record entries made by the Scribe were at my direction and personally dictated by me. I have reviewed the chart and agree that the record accurately reflects my personal performance of the history, physical exam, medical decision making, and the department course for this patient. I have also personally directed, reviewed, and agree with the discharge instructions and disposition. Disposition Doctor Will See Patient In The: Hospital Counseled Patient/Family Regarding: Studies Performed, Diagnosis - Disposition Referrals: Vito Elias MD [Staff Provider] - Disposition: HOME/ ROUTINE Disposition Time: 23:26 Condition: GOOD Additional Instructions: see your PMd as scheduled Instructions: Hydrocele, Hyperglycemia, Adult Forms: [employer] ([place]) Print Language: SERBIAN - Clinical Impression Clinical Impression: Hydrocele, Urinary retention, Jasmine catheter in place
[2017-10-13] MEDS ORDERED: Morphine 4 MG/ML VIAL ONE (13:58)
[2017-10-13 13:59] LABS: BASO # 0.1 K/uL (0.0-0.2); BASO % 1.1 % (0.0-2.0); EOS # 0.1 K/uL (0.0-0.7); EOS % 1.1 % (0.0-4.0); HEMOGLOBIN 13.1 g/dL (12.0-18.0); LYMPH # 1.8 K/uL (1.0-4.3); LYMPH % 24.8 % (20.0-40.0); MEAN CELL VOLUME 85.8 fL (80.0-94.0); MEAN CORPUSCULAR HEMOGLOBIN 29.8 pg (27.0-31.0); MEAN CORPUSCULAR HGB CONC 34.7 g/dL (33.0-37.0); MEAN PLATELET VOLUME 8.2 fL (7.2-11.7); MONO # 0.6 K/uL (0.0-0.8); MONO % 7.9 % (0.0-10.0); NEUT # 4.7 K/uL (1.8-7.0); NEUT % 65.1 % (50.0-75.0); RBC 4.39 Mil/uL (4.40-5.90); RED CELL DISTRIBUTION WIDTH 13.6 % (11.5-14.5); WHITE BLOOD COUNT 7.2 K/uL (4.8-10.8)
[2017-10-13 14:06] LABS: PROTHROMBIN TIME 11.4 SECONDS (9.7-12.2)
[2017-10-13 14:10] LABS: URINE BILIRUBIN NEGATIVE (NEGATIVE); URINE BLOOD 2+ (NEGATIVE); URINE CLARITY Clear (Clear); URINE COLOR Straw (YELLOW); URINE GLUCOSE (UA) 3+ mg/dL (Normal); URINE LEUKOCYTE ESTERASE NEG Leu/uL (Negative); URINE PROTEIN NEGATIVE (NEGATIVE); URINE UROBILINOGEN NORMAL mg/dL (0.2-1.0)
[2017-10-13 14:14] LABS: ALB/GLOB RATIO 1.4 (1.0-2.1); ALBUMIN 4.4 g/dL (3.5-5.0); ALT/SGPT 33 U/L (21-72); AST/SGOT 26 U/L (17-59); BLOOD UREA NITROGEN 15 mg/dL (9-20); CALCIUM 8.8 mg/dl (8.6-10.4); GFR AFRICAN-AMERICAN > 60; GFR NON-AFRICAN AMERICAN > 60
[2017-10-13] MEDS ORDERED: (Novolin R) Insulin Human Regular 100 units/ml vial IV ONE (14:28)
[2017-10-13] MEDS ORDERED: (Novolin R) Insulin Human Regular 100 units/ml vial ONE (14:50)
[2017-10-13] MEDS ORDERED: Iodixanol 320 MG/ML 100 ML BOTTLE IV ONE (15:12)
--- NOTE | 2017-10-13 16:09 | CT ---
PROCEDURE: CT Abdomen and Pelvis with contrast HISTORY: R inguinal mass COMPARISON: None. TECHNIQUE: Contrast dose: 100 mL Visipaque [id number]. Axial and reformatted coronal and sagittal CT images of the abdomen and pelvis were obtained after IV contrast administration. Radiation dose: Total exam DLP = 1129.78 mGy-cm. This CT exam was performed using one or more of the following dose reduction techniques: Automated exposure control, adjustment of the mA and/or kV according to patient size, and/or use of iterative reconstruction technique. FINDINGS: LOWER THORAX: Mild bibasilar atelectasis noted more prominent on the right. No evidence of significant pleural effusion. LIVER: Mild hepatomegaly with findings suggestive of mild hepatic steatosis. GALLBLADDER AND BILE DUCTS: Unremarkable. PANCREAS: Unremarkable. No gross lesion or ductal dilatation. SPLEEN: Unremarkable. ADRENALS: Unremarkable. No mass. KIDNEYS AND URETERS: Unremarkable. No hydronephrosis. No solid mass. VASCULATURE: Unremarkable. No aortic aneurysm. BOWEL: Mild constipation is noted. No evidence of bowel obstruction. APPENDIX: No evidence of appendicitis. PERITONEUM: Nonspecific mesenteric stranding seen in the upper abdomen around the mesenteric root. No evidence of free fluid or free air in the abdomen and pelvis. LYMPH NODES: No evidence of significant retroperitoneal lymphadenopathy. Mildly enlarged mesenteric lymph nodes seen at the upper abdomen. BLADDER: The urinary bladder is displaced anteriorly by markedly enlarged prostate. Diffuse urinary bladder wall thickening is noted. There is suspicious for right bladder focal wall thickening. There is Dukes catheter seen extending to the bladder. REPRODUCTIVE: Markedly enlarged prostate is noted. BONES: No acute fracture. OTHER FINDINGS: Moderate to large right-sided hydrocele partially imaged in this study. Mildly enlarged lymph node noted in the right inguinal region. IMPRESSION: Nonspecific mesenteric stranding and haziness noted in the upper abdomen around the mesenteric root associated with mild enlargement of the mesenteric lymph node. Follow-up study is recommended in months is. Partially imaged right hydrocele in the scrotum. Slightly prominent lymph node noted in the right groin. No evidence of mass lesion in the right groin. Markedly enlarged prostate. Circumferential urinary bladder wall thickening and questionable focal wall thickening in the right aspect of the bladder. Further assessment by ultrasound is recommended to exclude bladder neoplasm.
[2017-10-13 16:31] VITALS: BP 143/81; PULSE 96; RESP 17; TEMP 97.9
[2017-10-13 23:27] VITALS: O2SAT 95
--- NOTE | 2017-10-14 12:06 | CARD ---
APPROVED REPORT EKG Measurement Heart [id number] <Conclusion> Sinus tachycardia Otherwise normal ECG
== END 2017-10-13 17:15 | disposition home or self-care (01) ==
LOC: C.ER 13:13
DX: N43.3 Hydrocele, unspecified (principal); N40.1 Benign prostatic hyperplasia with lower urinary tract symptoms; R33.9 Retention of urine, unspecified; I10 Essential (primary) hypertension; E11.9 Type 2 diabetes mellitus without complications
CPT/HCPCS: 74177; 80053; 81001; 82948; 85025; 85610; 85730; 93005; 96374; 96375; 99285; J2270; Q9967